=== PATIENT | female | born 1970 | race American Indian/Alaskan Native ===

== ENCOUNTER 2019-06-13 08:16 | Outpatient (CLI) | payer MEDICARE ==
--- NOTE | 2019-06-13 12:21 | Ultrasound Report ---
ULTRASOUND RENAL INDICATION / CLINICAL INFORMATION: R94.4 ABNORMAL RESULTS OF KIDNEY FUNCTION STUDIES. COMPARISON: None available. FINDINGS: RIGHT KIDNEY: Length = 9.4 cm. [normal > 9 cm] - Parenchymal Thickness = 1.4 cm. [normal > 1.5 cm] - Echogenicity: Normal. - Hydronephrosis: None. - Cyst or mass: No significant abnormality. - Stones: None seen. LEFT KIDNEY: Length = 9.7 cm. [normal > 9 cm] - Parenchymal Thickness = 2.1 cm. [normal > 1.5 cm] - Echogenicity: Normal. - Hydronephrosis: None. - Cyst or mass: No significant abnormality. - Stones: None seen. URINARY BLADDER: No significant abnormality. FREE FLUID: None. ADDITIONAL FINDINGS: None. IMPRESSION: Unremarkable renal ultrasound. Signer Name: Avery Posada Jr, MD Signed: 06/13/2019 12:17 PM Workstation Name: [id number]
== END 2019-06-13 08:17 | disposition home or self-care (01) ==
LOC: US 08:16
PROVIDERS: ATTEND Hospitalist
DX: R94.4 Abnormal results of kidney function studies (principal)
CPT/HCPCS: 76770